=== PATIENT | male | born 1995 | race African-American/Black ===

== ENCOUNTER 2019-07-15 12:25 | Emergency (ER) | payer OTHER, SELFPAY ==
[2019-07-15 12:30] VITALS: BP 132/78; PULSE 81; RESP 18; TEMP 36.4; O2SAT 98
--- NOTE | 2019-07-15 12:59 | ED.GENADULT ---
HPI - General Adult General Chief complaint: Upper Respiratory Infection Stated complaint: sore throat/swollen tonsils History of Present Illness HPI narrative: Patient is a 23-year-old -[place] male who presents to the urgent care via POV for evaluation of a sore throat that began 2 days ago. Additionally he reports myalgias and tonsillar swelling. Throat pain is intermittent and tight in nature. No relief with Robitussin. Swallowing worsens pain. History of strep. States today's symptoms are similar to previous episodes of strep prompting today's visit. Pertinent negatives: fever, chills, poor p.o. intake, flu-like symptoms, ear pain/drainage, sinus trouble, headache, nasal congestion, rhinorrhea, lymphadenopathy, dizziness, LOC, inability to swallow, drooling, hoarseness, halitosis, abdominal pain, nausea, vomiting, diarrhea, cough, wheezing, sob, chest pain, heart murmurs, and heart palpations. Related Data Home Medications Medication Instructions Recorded Confirmed qhvolrumb-OQ-oalvreikvequi ml PO 07/15/19 [Robitussin Cold-Flu Night (PE)] Allergies Allergy/AdvReac Type Severity Reaction Status Date / Time No Known Allergies Allergy Verified 07/15/19 12:36 Review of Systems Review of Systems: Narrative: All other systems reviewed and are negative PMFSH Comments I have reviewed and agree with the patient's past medical, surgical, social, and family hx as documented by the RN. There is no relevant family history pertinent to the presenting complaint. Exam Narrative: Exam Narrative: GENERAL: Well-appearing, well-nourished, and in no acute distress. HEAD: Normocephalic, atraumatic. No sinus tenderness or facial swelling appreciated. EYES: PERRLA and EOMI. No evidence of erythema, swelling, or drainage. ENT: Bilateral external ears and ear canals normal. Bilateral TMs are normal.No TM perforation. Nares clear, no rhinorrhea or epistaxis. Bilateral turbinates without erythema/ swelling. Mucous membranes moist and pink. Uvula is midline without erythema and swelling. Aphthous ulcer appreciated to uvula. Bilateral tonsils with mild erythema. No evidence of petechial rash, cobblestoning, lesions, swelling, exudates, peritonsillar abscess, tenting, or drooling. Breath odor and voice normal. NECK: Supple. No Lymphadenopathy or nuchal rigidity appreciated. CHEST: Bilateral lung daley are clear to auscultation. No respiratory distress. No evidence of cough or pleuritic cp upon examination. HEART: Regular rate and rhythm. No murmur, gallop, or rub heard. EXTREMITIES: Normal range of motion. No edema. SKIN: Warm, dry, no rash. NEURO: No focal deficits. Alert and oriented x3. Course Vital Signs Vital signs: Vital Signs Temperature 97.5 F L 07/15/19 12:30 Pulse Rate 81 07/15/19 12:30 Respiratory Rate 18 07/15/19 12:30 Blood Pressure 132/78 07/15/19 12:30 Pulse Oximetry 98 07/15/19 12:30 Temperature 97.5 F L 07/15/19 12:30 Pulse Rate 81 07/15/19 12:30 Respiratory Rate 18 07/15/19 12:30 Blood Pressure 132/78 07/15/19 12:30 Pulse Oximetry 98 07/15/19 12:30 Medical Decision Making Differential Diagnosis Differential Diagnosis: Allergic rhinitis, ABRS, acute viral sinusitis, strep pharyngitis, nasopharyngitis, bronchitis, pneumonia, AOM, otitis externa, viral URI, influenza Medical Records Medical records reviewed: Yes I reviewed the patient's medical records. Vital Signs Vital Signs: Vital Signs Temperature 97.5 F L 07/15/19 12:30 Pulse Rate 81 07/15/19 12:30 Respiratory Rate 18 07/15/19 12:30 Blood Pressure 132/78 07/15/19 12:30 Pulse Oximetry 98 07/15/19 12:30 Temperature 97.5 F L 07/15/19 12:30 Pulse Rate 81 07/15/19 12:30 Respiratory Rate 18 07/15/19 12:30 Blood Pressure 132/78 07/15/19 12:30 Pulse Oximetry 98 07/15/19 12:30 Lab Data Lab results reviewed: Yes I reviewed the patient's lab results. Labs: Strep
== END 2019-07-15 13:22 | disposition home or self-care (01) ==
PROVIDERS: Emergency Provider Nurse Practitioner Family
DX: J02.9 Acute pharyngitis, unspecified (principal)
CPT/HCPCS: 87081; 87880; 99213; G0463

== ENCOUNTER 2019-07-22 15:56 | Emergency (ER) | payer OTHER, SELFPAY ==
[2019-07-22 15:58] VITALS: BP 127/77; PULSE 75; RESP 16; TEMP 36.6; O2SAT 100
--- NOTE | 2019-07-22 16:01 | ED.URI ---
HPI - URI/Sore Throat General Chief Complaint: Upper Respiratory Infection Stated Complaint: sore throat Time Seen by Provider: 07/22/19 16:04 Source: patient and RN notes reviewed Mode of arrival: ambulatory Limitations: no limitations History of Present Illness HPI Narrative: 23-year-old male presents with concern for sore throat, swollen tonsils for 10 days. He reports he had a negative strep test done here 1 week ago. Reports symptoms have not improved despite use of Sammi-D, Flonase. Denies current fever. Denies headache, nausea. Reports body aches. MD elicited complaint: sore throat Related Data Home Medications Medication Instructions Recorded Confirmed Flonase Allergy Relief 07/22/19 fexofenadine-pseudoephedrine 1 tablet PO QAM 07/22/19 07/22/19 [Sammi-D 24 Hour] Allergies Allergy/AdvReac Type Severity Reaction Status Date / Time No Known Allergies Allergy Verified 07/17/19 15:12 Review of Systems Review of Systems: Narrative: CONSTITUTIONAL: Reports malaise. Denies chills, sweats, or fever. EYES: Denies visual changes, redness, or discharge. ENT: Denies rhinorrhea, congestion, sinus pain, otalgia. Reports swollen tonsils and sore throat. CARDIOVASCULAR: Denies chest pain, palpitations, or edema. RESPIRATORY: Reports nighttime cough. Denies dyspnea. GASTROINTESTINAL: Denies abdominal pain, nausea, vomiting, diarrhea SKIN: Denies rash or itching. MUSCULOSKELETAL: Denies myalgia. NEUROLOGIC: Denies headache. All systems reviewed & are unremarkable except as noted in HPI and below PMFSH Social History Social History (System 07/17/19 @ 15:12 by Georgie Hargrove) Smoking status: Never smoker Alcohol intake: never Comments At time of signature, agree with nursing past medical, surgical, social and family history. There is no relevant family history pertinent to the presenting complaint Exam Narrative: Exam Narrative: GENERAL: Well-appearing, well-nourished, and in no acute distress. HEAD: Normocephalic EYES: PERRLA, conjunctivae clear ENT: Nares clear, turbinates erythematous, clear discharge. Mucous membranes moist. TM pearly diaz with sharp light reflex bilaterally; no tragal tenderness. Oropharynx erythematous without lesions. Tonsils enlarged with exudate, no drooling, no hoarseness, no trismus, uvula midline. NECK: Supple. No lymphadenopathy CHEST: Clear to auscultation, breath sounds equal. No wheezing, rhonchi, rales, or stridor. No respiratory distress, speaks in full sentences. HEART: Regular rate and rhythm. No murmur heard. SKIN: Warm, dry, no rash. NEURO: Alert and oriented x3. PSYCH: Normal mood and affect Course Course Emergency Course: Patient is aware of diagnosis, understands and agrees to treatment plan. Anticipatory guidance given. Patient agrees to follow-up as directed and is aware of reasons to seek care at the emergency department. Portions of this record may have been created with voice recognition software Vital Signs Vital signs: Vital Signs Temperature 97.8 F 07/22/19 15:58 Pulse Rate 75 07/22/19 15:58 Respiratory Rate 16 07/22/19 15:58 Blood Pressure 127/77 07/22/19 15:58 Pulse Oximetry 100 07/22/19 15:58 Temperature 97.8 F 07/22/19 15:58 Pulse Rate 75 07/22/19 15:58 Respiratory Rate 16 07/22/19 15:58 Blood Pressure 127/77 07/22/19 15:58 Pulse Oximetry 100 07/22/19 15:58 Reviewed. MDM - URI/Sore Throat MDM Narrative Medical decision making narrative: Differential diagnosis considered: Strep pharyngitis, allergic rhinitis, upper respiratory tract infection, sinusitis, rhinosinusitis, nasopharyngitis. viral pharyngitis, otitis media, otitis externa, pneumonia, bronchitis, viral cough syndrome, viral syndrome, and influenza. Exam findings show no acute concerns or changes; patient is non-toxic appearing and is in no distress. Patient is appropriate for outpatient treatment and follow-up. Critical Care Time Critical
== END 2019-07-22 16:18 | disposition home or self-care (01) ==
PROVIDERS: Emergency Provider Nurse Practitioner
DX: J03.90 Acute tonsillitis, unspecified (principal)
CPT/HCPCS: 99213; G0463

== ENCOUNTER 2023-06-19 11:44 | Outpatient (CLI) | payer BC, SELFPAY | END 2023-06-19 11:45 | disposition home or self-care (01) | LOC: ANHSURGERY 11:47 | PROVIDERS: PCP Family Medicine; Visit Provider Surgery | DX: Z01.818 Encounter for other preprocedural examination (principal); K40.90 Unilateral inguinal hernia, without obstruction or gangrene, not specified as recurrent | CPT/HCPCS: 36415; 86850; 86900; 86901 ==

== ENCOUNTER 2023-06-23 01:43 | Day surgery (SDC) | payer BC, SELFPAY ==
[2023-06-14 14:30] VITALS: BMI 27.0
--- NOTE | 2023-06-14 14:33 | PC.NURSE ---
Report to the Outpatient Waiting Room, entrance under the green pavilion located off [facility], at time 7:30 on date 06/23/23. Planned Procedure Time: 9:30. Time changes happen often and if your time is changed the preop area will call you the afternoon before. - You and your visitor will be asked to self-screen and do not enter if you have any COVID symptoms. - A mask is optional within the hospital at this time. Patients may have clear liquids (water, carbonated beverages, clear teas, apple juice) until 3 hours prior to surgery with a maximum of 20 ounces. - No food from midnight until time of surgery Take the following medications with a SIP of water the morning of surgery: N/A DO NOT STOP ANY OF YOUR OTHER PRESCRIPTION MEDICATIONS PRIOR TO SURGERY ?EXCEPT THE FOLLOWING Medications to discontinue per physician: N/A Date to take last dose: N/A Please no make-up, nail persian, hairspray, perfume, deodorant, or body powder the day of surgery. No jewelry (including any body piercings) or valuables the day of surgery, leave them at home. Please take a shower or bath the night before, or the morning of, surgery with an antibacterial soap. Wear comfortable, loose fitting clothing. - Jewelry must be removed prior to entering the operating room. Rings and piercings that are not removed may be cut off. - The hospital will not accept responsibility for valuables. - Please leave all valuables, including medications, at home the day of surgery. If you are going home after surgery, a licensed truck driver's offsider must drive you home. - NO public transportation without another adult if you receive anesthesia. - We recommend that an adult stay with you for 24 hours following discharge. - We also recommend that you do not drive, make important decision, drink alcoholic beverages, or take any drugs that were not prescribed by your health care provider for at least 24 hours after your discharge time. Follow any additional instructions given to you from your surgeon. If you or anyone in your household have experienced Covid symptoms in the past week, please notify your surgeon or the nurse liaison at the phone number below for possible testing. Telephone instructions given to PT Zac RODRIGUEZ and asked if any additional questions and then verbalized understanding. Patient advised to call surgeon office or pre surgery nurse liaison [phone] if any additional questions.
--- NOTE | 2023-06-21 15:49 | PM.SD2 ---
Same Day Admit/Disch: HPI History of Present Illness Chief complaint: right inguinal hernia Narrative: Nely Hernández Jr. is a 27 year old male who has had a right inguinal bulge for at least a year. He has noticed that this is becoming more and more uncomfortable. He has pain with prolonged standing and physical exertion. He was seen in the office and found to have a large right inguinal hernia which extends to the upper portion of the right hemiscrotum. He is taken to surgery now for robotic laparoscopic right inguinal hernia repair with mesh. 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 Gender identity (if verbalized by the patient): Male Spiritual care concerns: No Agree to blood products: Yes Same Day Admit/Disch: Med Pre-admit Medications Home Medications Medication Instructions Recorded Confirmed Type ketorolac 10 mg tablet 10 mg PO Q6H 4 days #16 tabs 06/23/23 Rx oxycodone-acetaminophen 5 mg-325 0.5 - 1 tablet PO Q6H PRN pain #10 06/23/23 Rx mg tablet tabs Review of Systems Review of Systems All systems reviewed & are unremarkable except as noted in HPI and below (HPI) Exam Const: General: comfortable, no acute distress, alert and awake HENMT: Head: normocephalic and atraumatic Mouth: Yes Normal oral and palatal mucosa present Eyes: Conjunctivae: conjunctivae normal Pupils: Equal, round and reactive pupils present EOM: EOMs intact bilaterally Neck: Neck: normal visual inspection, no lymphadenopathy and nontender Resp: Effort & Inspection: normal respiratory effort Auscultation: clear to auscultation bilaterally Cardio: Rate: regular rate Rhythm: regular rhythm Heart sounds: no gallops, no murmurs and no rubs GI: Inspection: non-distended GI Palp: Yes Soft to palpation, No Tenderness to palpation present (GI), No Hepatomegaly present and No Splenomegaly present : Male General Exam: Yes hernia (Large right inguinal hernia, reducible; extends into the upper scrotum) Penis: Yes normal penis Scrotum: inguinal hernia Testes: Testes normal Skin: Lesions: no lesions Rashes: no rashes Neuro: General: no focal motor deficits and CN's II-XI intact bilaterally Cranial nerves: Yes Equal, round and reactive pupils present, Yes Bilaterally intact EOM present, Yes facial symmetry and Yes Midline tongue present Speech: normal speech Motor exam (neuro): 5/5 motor strength present throughout and Motor abnormalities not present Extrem: General: no clubbing, cyanosis or edema and edema Psych: Affect: normal affect Thought process: Normal thought process present Insight: Good insight present (Psych) DS: Summary Time Spent with Patient Time attestation: Total time spent providing and/or coordinating discharge services: DS: Admitting Diagnosis Discharge Date 06/23/2023 Admitting Diagnosis Symptomatic reducible right inguinal hernia-plan to proceed with robotic laparoscopic hernia repair with mesh. The procedure, alternatives, risks and benefits have been discussed. The usual recovery time has been discussed as has the usual time off work. All questions were answered. He understands and wishes to go ahead. DS: Discharge Diagnosis Discharge Diagnosis (1) Reducib
[2023-06-23] VITALS (9 sets, daily range): BP systolic 107–135; BP diastolic 56–74; PULSE 58–79; RESP 12–18; TEMP 36.3–36.4; O2SAT 98–100
[2023-06-23] MEDS: LACTATED RINGERS 1,000 ML 30 ML IV CONT ×2 (08:37→11:30)
[2023-06-23] MEDS: ACETAMINOPHEN 500 MG TABLET 1000 MG PO (09:02)
--- NOTE | 2023-06-23 09:02 | WPDHPUPDATE1 ---
History and Physical Update Update Date/Time: 06/23/23 09:02 History and Physical has been reviewed, including an updated exam of the patient. There are NO changes in the patient's condition. Risks, benefits, and alternatives have been discussed and questions answered. Patient agrees to proceed with procedure.
--- NOTE | 2023-06-23 09:03 | P.PNAN_ITS ---
Anes - Initial Pre Proc Eval Procedure: Operation Date: 06/23/23 09:30 Proposed Procedures p Robotic Laparoscopic Right Inguinal Hernia Repair - Braden Cutler MD Date/Time: 06/23/23 09:03 Surgeon: Braden Cutler MD Pre Op Diagnosis: right inguinal hernia Patient Data Age: 27 Gender: M Height: 1.91 m Weight: 99.6 kg Allergies Allergy/AdvReac Type Severity Reaction Status Date / Time No Known Allergies Allergy Verified 06/23/23 07:45 Home Medications Medication Instructions Recorded Confirmed Type No Home Medications 05/08/23 06/23/23 History Patient hx anesthesia problems: none Family hx anesthesia problems: none Results Review: All pre-operative results and documents have been reviewed as part of the pre- operative evaluation. [facility] Family History Family History Grandparent Diabetes mellitus Father Diabetes mellitus Social History Social History Smoking status: Never smoker Alcohol intake: never Substance use: never Substance use type: does not use Do You Feel Safe in your Home?: Yes Lack of Transportation: No Lack of Food: Never True Current Housing: I Have Housing Concerned About Future Housing: No Difficulty Paying Gas/Electric Bills: No Difficulty Paying for Meds: No Currently Unemployed: No Education: High School Diploma/GED Living arrangements: with family Occupation/Education: occupation 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 Gender identity (if verbalized by the patient): Male Spiritual care concerns: No Agree to blood products: Yes Anes - Eval Final PreProcedure Day of Procedure 06/23/23 09:03 Patient weight: overweight Heart: regular rate and rhythm Lungs: clear to auscultation Airway: Mallampati scale class II Neurological: alert and oriented Last oral intake: >/= 8 hours ASA classification: II Emergent: no Anesthetic plan: proceed Anesthesia type and monitoring: general ETT and standard monitoring Results Review: All pre-operative results and documents have been reviewed as part of the pre- operative evaluation. Informed Consent: The patient's anesthetic plan and its attendant risks and benefits were discussed with the patient/family/POA. Questions were solicited and answers provided to the satisfaction of the patient/family/POA.
[2023-06-23] MEDS: KETOROLAC 15 MG/ML VIAL (*BKC) IV PUSH (09:04)
[2023-06-23] MEDS: ceFAZolin 2 GM/D5W 50 ML 2 GM/50 ML BAG IVPB (09:23)
[2023-06-23] MEDS: BUPIVACAINE/EPINEPHRINE 0.5% 30 ML VIAL INFILTRATE (10:09)
--- NOTE | 2023-06-23 11:26 | W.PM.PROC2 ---
Procedure Note - Detailed Date of Procedure 06/23/23 Pre-op Diagnosis right inguinal hernia Post-op Diagnosis Same Procedure Performed Robotic laparoscopic repair right inguinal hernia with mesh Surgeon Braden Cutler MD News Assignment Editor Luis FARAH Anesthesia General and Local Indications Patient has a large right inguinal hernia that goes down into the upper scrotum. It has been uncomfortable and sometimes painful. It is reducible. He is taken to surgery now for robotic laparoscopic repair Findings This was a large hernia with a very large hernia sac and quite a bit of lipomatous tissue of the cord. Description of Procedure Patient was taken to the operating room and induced into general anesthesia. The abdomen and genitalia were prepped and draped. Trocars were placed using applied Medical 5 mm optical trocar to gain the initial intra-abdominal access. 8 mm robotic trocars were then placed under direct visualization. The 5 mm trocar was then switched out for an 8 mm robotic trocar. The trocars were in a transverse line in the mid upper abdomen. Patient was placed in Trendelenburg. The robot was brought into the field and the camera was docked and targeted. The instrument arms were then docked and each instrument was guided under direct visualization to the area of the right inguinal hernia. The surgeon then broke scrub and went to the robotic console. A peritoneal flap was created starting laterally and proceeding anteriorly and medially over the structures of the inguinal canal. The dissection was carried medially to the median umbilical ligament. The peritoneal flap was then dissected broadly from the underlying contents the pelvic anterior wall. Medially we dissected along the right rectus muscle down to the pubis. We dissected across the midline to the medial aspect of the left rectus muscle and exposed the midpoint of the pubis. We then dissected about 2 cm posterior to the pubis and Miky's ligament. I moved than laterally and dissected ample amounts of the peritoneal flap posteriorly. At this point I began dissection of the indirect hernia. With traction on the anterior hernia sac I began dividing transversalis fibers and pushing them distally. Continued this dissection and a large lipoma of the cord was found and reduced. Continued the dissection and then proceeded lateral to hernia sac and carefully dissected the cord structures away from this portion of the hernia sac. Once these were found, they were carefully protected. I continued dividing transversalis and reducing the hernia sac until I came to the into the sac. I then carefully dissected this and the remainder of the hernia sac from the cord vessels. Hernia sac and the peritoneal flap were then dissected far enough away from the indirect ring for adequate mesh placement. There was very little bleeding during this procedure and visualization was excellent. I then introduced the mesh and positioned it appropriately with the medial aspect of the mesh over the pubis and Miky's ligament. I then used a 3-0 Vicryl in secure the medial aspect of the lower mesh to Miky's ligament. I then placed interrupted sutures anteriorly both on medial as well as the lateral aspect of the inferior epigastric vessels. Mesh appeared to be quite secure in this position. I checked again for any sign of bleeding and there was none. I then used a 3 0 V lock suture and starting laterally, closed the peritoneal flap running suture. When the flap was adequately closed, there was no peritoneal defects that required closure. We then evacuated CO2 and the robotic instruments, undocked the robot and removed the trocars. The skin wounds were closed with subcuticular 4-0 Monocryl skin suture. A scrotal support was placed. The patient was awakened and taken to recovery in good condition. Sponge needle counts were correct x2. Implants 17 x 12 cm mid right 3DMax mesh Estimated Blood Loss -5 Drains
[2023-06-23] MEDS: fentaNYL CITRATE INJ (*CRX) 100 MCG/2 ML VIAL 25 MCG IV PUSH (12:09)
== END 2023-06-23 13:54 | disposition home or self-care (01) ==
PROVIDERS: PCP Family Medicine; Visit Provider Surgery
PROC: 8E0Y4CZ Robotic Assisted Procedure of Lower Extremity, Percutaneous Endoscopic Approach (ICD-10-PCS; CPT 49650; principal; 2023-06-23 09:30)
DX: K40.90 Unilateral inguinal hernia, without obstruction or gangrene, not specified as recurrent (principal); D17.6 Benign lipomatous neoplasm of spermatic cord
CPT/HCPCS: 49650; S2900; A9270; C1781; J0690; J1100; J1170; J1885; J2250; J2405; J2704; J3010; J7030; J7120

== ENCOUNTER 2023-11-23 14:33 | Outpatient (CLI) | payer BC, SELFPAY ==
--- NOTE | ~2023-11-23 | CT_ITS ---
EXAMINATION: CT abdomen pelvis wo con DATE: 11/23/2023 14:48 INDICATION: Lower abdominal and groin pain TECHNIQUE: Computed tomography (CT) of the abdomen and pelvis was performed without intravenous contr ast. Automated exposure control and iterative reconstruction technique were employed. The dose-length product was 854.78 mGy-cm. COMPARISON: None FINDINGS: Lung bases are clear. Heart size is normal. No pericardial or pleural effusion. Liver, gallbladder, s pleen, pancreas, bilateral adrenal glands and kidneys are normal. No bowel obstruction. Normal append ix. Bladder is normal. No free intraperitoneal gas or fluid. No pathologically enlarged abdominal or pelvic lymphadenopathy. Mild thoracolumbar levocurvature with mild spondylosis. For millimeter retrol isthesis L5 on S1. IMPRESSION: 1. No acute intra-abdominal/pelvic process. Reviewed, dictated and finalized at location A.
== END 2023-11-23 14:34 ==
LOC: GOSHIMG 14:33
PROVIDERS: PCP Family Medicine; Visit Provider Student in an Organized Health Care Education/Training Program
DX: R10.30 Lower abdominal pain, unspecified (principal)
CPT/HCPCS: 74176

== ENCOUNTER 2023-12-21 15:01 | Outpatient (CLI) | payer BC, SELFPAY ==
--- NOTE | ~2023-12-21 | XR_ITS ---
EXAMINATION: XR pelvis min 3V DATE: 12/21/2023 15:22 INDICATION: Traumatic rupture of symphysis pubis. Pelvic pain. TECHNIQUE: 3 views of the pelvis were obtained. COMPARISON: CT abdomen and pelvis 11/23/2023 FINDINGS: Alignment is normal. No fracture. There is mild osteoarthritis of the hips. IMPRESSION: 1. Mild osteoarthritis of the hips. Reviewed, dictated and finalized at location A.
== END 2023-12-21 15:02 ==
PROVIDERS: PCP Family Medicine; Visit Provider Family Medicine
DX: S33.4XXA Traumatic rupture of symphysis pubis, initial encounter (principal); M16.0 Bilateral primary osteoarthritis of hip
CPT/HCPCS: 72190

== ENCOUNTER 2024-04-17 01:20 | Day surgery (SDC) | payer BC, SELFPAY ==
[2024-04-17] VITALS (13 sets, daily range): BP systolic 110–133; BP diastolic 52–79; PULSE 59–90; RESP 14–20; TEMP 36.1–36.6; O2SAT 95–100
--- NOTE | ~2024-04-17 | CT_ITS ---
CT of the Abdomen and Pelvis: Indication: Abdominal pain Technique: 2.5 mm axial scans were obtained through the abdomen and pelvis following intravenous adm inistration of 100 cc of Omnipaque 350. Dose reduction technique was used on this scan by utilizing a utomated exposure control and iterative reconstruction technique. The dose-length product (DLP) was 5 21.57 mGy-cm. COMPARISON: 11/23/2023 Findings: Scans through the lung bases are unremarkable. The liver, spleen, pancreas, gallbladder, adrenals and kidneys are within normal limits. No evidence of aortic aneurysm. No lymphadenopathy. No bowel obstruction or bowel wall thickening. Appendix measures up to 1 cm in diameter with possible minimal periappendiceal fat or stranding. Images through the pelvis were performed. Urinary bladder unremarkable. No pelvic mass. Impression: Suspected early acute appendicitis. Correlate clinically. Reviewed, dictated and finalized at [facility]. 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 Correlate clinically.
[2024-04-17 01:46] LABS: Basophils Percent Auto 0.4 % (0.2-1.2); Eosinophils Absolute Auto 0.1 K/mm3 (0-0.3); Eosinophils Percent Auto 0.6 % (0-4.4); Hematocrit 38.1 % (42.0-52.0); Hemoglobin 13.5 g/dL (14.0-18.0); Immature Granulocyte Absolute 0.02 K/mm3 (0.00-0.031); Immature Granulocyte Percent A 0.2 % (0-0.5); Lymphocytes Absolute Auto 2.32 K/mm3 (0.9-3.2); Mean Corpuscular HGB Conc 35.4 g/dl (32-36); Mean Corpuscular Volume 87.6 fl (80-100); Mean Platelet Volume 10.2 fl (7.4-10.4); Monocytes Absolute Auto 0.8 K/mm3 (0.1-0.6); Monocytes Percent Auto 7.9 % (2.6-8.5); Neutrophils Absolute Auto 7.3 K/mm3 (1.3-6.7); Neutrophils Percent Auto 68.9 % (45.5-73.1); Platelet Count Result 210 k/mm3 (150-375); Red Blood Count 4.35 M/mm3 (4.6-6.20); Red Cell Distribution Width 11.2 % (11.5-14.5); White Blood Count 10.6 K/mm3 (4.5-10.0)
[2024-04-17 01:47] LABS: Add Urine Microscopic? NO; Appearance Urine Clear (Clear); Bilirubin Urine Negative (Negative); Blood Urine Negative (Negative); Color Urine Yellow (Yellow); Glucose Urine UA Negative (Negative); Ketones Urine Negative (Negative); Leukocyte Esterase Ur Negative LEU/UL (Negative); Nitrate Urine Negative (Negative); Protein Urine Negative (Negative); Specific Grav Ur 1.014 (1.001-1.035); Urobilinogen Urine 0.2 mg/dL (<2.0); pH Urine 6.5 (5.0-9.0)
--- NOTE | 2024-04-17 01:47 | ED.ABDPAIN ---
HPI - Abdominal Pain General Chief Complaint: Abdominal Pain <DONNA Xiao Last Filed: 04/17/24 03:54> Stated Complaint: abd pain <DONNA Xiao Last Filed: 04/17/24 03:54> Time Seen by Provider: 04/17/24 01:30 <William Deluna PA-C - Last Filed: 04/17/24 03:54> Source: patient <DONNA Xiao Last Filed: 04/17/24 03:54> Mode of arrival: ambulatory <DONNA Xiao Last Filed: 04/17/24 03:54> Limitations: no limitations <DONNA Xiao Last Filed: 04/17/24 03:54> History of Present Illness HPI narrative: This is a 28-year-old male who presents to the ED for chief complaint of lower abdominal pain ongoing for the past several days and worse tonight. Reports a pressure-like pain in the low abdomen/mid abdomen. Reports that feels like it is radiating superiorly. States this all started a few months ago when his daughter need him in the groin. Since then he has been having pain with erections. States he has had hernia in the past but this feels different. Denies urinary symptoms, troubles with bowel movements. Denies fevers, chills, testicular swelling, nausea, vomiting, diarrhea. <William Deluna PA-C - Last Filed: 04/17/24 03:54> Related Data Allergies/Adverse Reactions: Allergies Allergy/AdvReac Type Severity Reaction Status Date / Time No Known Allergies Allergy Verified 04/17/24 01:49 <William Deluna PA-C - Last Filed: 04/17/24 03:54> Review of Systems Review of Systems: All systems as dictated in HPI <DONNA Xiao Last Filed: 04/17/24 03:54> [facility] Surgical History Surgical History: Surgical History Hx of inguinal hernia repair Robotic laparoscopic repair right inguinal hernia with mesh 06/23/23 [facility] <DONNA Xiao Last Filed: 04/17/24 03:54> Family History Family History: Family History Grandparent Diabetes mellitus Father Diabetes mellitus <William Deluna PA-C - Last Filed: 04/17/24 03:54> Social History Social History: Social History Smoking status: Never smoker Alcohol intake: never Substance use: never Substance use type: does not use Do You Feel Safe in your Home?: Yes Lack of Transportation: No Lack of Food: Never True Current Housing: I Have Housing Concerned About Future Housing: No Difficulty Paying Gas/Electric Bills: No Difficulty Paying for Meds: No Currently Unemployed: No Education: High School Diploma/GED Living arrangements: with family Occupation/Education: occupation 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 HEAD: Normocephalic, atraumatic. EYES: PERRLA and EOMI. ENT: Nares clear, no rhinorrhea or epistaxis. Mucous membranes moist. Oropharynx without tonsillar hypertrophy exudate or other lesions. NECK: Supple. No adenopathy or masses. CHEST: No respiratory distress. Clear to auscultation. No wheezes rales or rhonchi HEART: Regular rate and rhythm. No murmur heard. Normal peripheral pulses. ABDOMEN: Mild suprapubic tenderness. Soft, otherwise nontender, nondistended, normal active bowel sounds. No bulge or hernia MSK: Normal range of motion. No edema. SKIN: Warm, dry, no rash. NEURO: Alert and oriented x4. No focal deficits. PSYCH: Normal mood and affect. <William Deluna PA-C - Last Filed: 04/17/24 03:54> Course ENVIRONMENTAL SERVICE AIDE/PA Physician Supervision For this patient encounter, I reviewed the ENVIRONMENTAL SERVICE AIDE or PA documentation, treatment plan, and medical decision making; and I had [id number] time with this patient. <Fritz Prince MD - Last Filed: 04/17/24 05:53> Vital Signs Vital signs: Vital Signs Temperature 36.6 C 04/17/24 01:28 Pulse Rate 90 04/17/24 01:28 Respiratory Rate 15 04/17/24 01:28 Blood Pressure 131/69 04/17/24 01:28 Pulse Oximetry 98 04/17/24 01:28 Oxygen Delivery Room Air 04/17/24 01:28 Temperature 36.6 C 04/17/24 01:28 Pulse Rate 69 04/17/24 05:15 Respiratory Rate 15 04/17/24 05:15 Blood Pressure 128/70 04/17/24 05:15 Pulse Oximetry 100 04/17/24 05:15 Oxygen Delivery Room Air 04/17/24 01:28 <William Deluna PA-C - Last Filed: 04/17/24 03:54> Vital Signs Temperature 36.6 C 04/17/24 01:28 Pulse Rate 90 04/17/24 01:28 Respiratory Rate 15 04/17/24 01:28 Blood Pressure 131/69 04/17/24 01:28 Pulse Oximetry 98 04/17/24 01:28 Oxygen Delivery Room Air 04/17/24 01:28 Temperature 36.6 C 04/17/24 01:28 Pulse Rate 69 04/17/24 05:15 Respiratory Rate 15 04/17/24 05:15 Blood Pressure 128/70 04/17/24 05:15 Pulse Oximetry 100 04/17/24 05:15 Oxygen Delivery Room Air 04/17/24 01:28 <Fritz Prince MD - Last Filed: 04/17/24 05:53> MDM - Abdominal Pain MDM Narrative Medical decision making narrative: 28-year-old male coming in for abdominal pain. Vitals are normal. Exam does show lower abdominal tenderness. Lab work is coming back unremarkable. Patient will be handed off at the time of shift change pending CT abdomen results. <William Deluna PA-C - Last Filed: 04/17/24 03:54> 28-year-old male coming in for abdominal pain. Vitals are normal. Exam does show lower abdominal tenderness. Lab work is coming back unremarkable. Patient will be handed off at the time of shift change pending CT abdomen results. CT scan of the abdomen pelvis showed acute appendicitis with dilated inflamed appendix measuring up to 1 cm Case was discussed with surgery and the patient was given Zosyn and the patient will be admitted to the surgical service <Fritz Prince MD - Last Filed: 04/17/24 05:53> Differential Diagnosis Differential diagnosis: Likely abdominal pain, acute appendicitis, calculus of kidney, constipation, diverticulitis, gastroenteritis and small bowel obstruction <William Deluna PA-C - Last Filed: 04/17/24 03:54> Lab Data Result diagrams: 04/17/24 01:36 04/17/24 01:36 <William Deluna PA-C - Last Filed: 04/17/24 03:54> Labs: Lab Results 04/17/24 Range/Units 01:36 WBC 10.6 H (4.5-10.0) K/mm3 RBC 4.35 L (4.6-6.20) M/mm3 Hgb 13.5 L (14.0-18.0) g/dL Hct 38.1 L (42.0-52.0) % MCV 87.6 (80-100) fl MCH 31.0 (26-34) pg MCHC 35.4 (32-36) g/dl RDW 11.2 L (11.5-14.5) % Plt Count 210 (150-375) k/mm3 MPV 10.2 (7.4-10.4) fl Immature Gran % (Auto) 0.2 (0-0.5) % Neut % (Auto) 68.9 (45.5-73.1) % Lymph % (Auto) 22.0 (18.3-44.2) % [place] % (Auto) 7.9 (2.6-8.5) % Eos % (Auto) 0.6 (0-4.4) % Baso % (Auto) 0.4 (0.2-1.2) % Lymph # (Auto) 2.32 (0.9-3.2) K/mm3 [place] # (Auto) 0.8 H (0.1-0.6) K/mm3 Eos # (Auto) 0.1 (0-0.3) K/mm3 Baso # (Auto) 0.0 (0.0-0.1) K/mm3 Abs Immat Gran (auto) 0.02 (0.00-0.031) K/mm3 Absolute Neuts (auto) 7.3 H (1.3-6.7) K/mm3 Absolute Nucleated RBC 0.000 (0.0-0.012) K/mm3 Nucleated RBC % 0.0 (0.0-0.2) % Sodium 136 L (137-145) mmol/L Potassium 3.2 L (3.4-5.0) mmol/L Chloride 103 (98-107) mmol/L Carbon Dioxide 27 (22-30) mmol/L Anion Gap 6 (4-12) mmol/L BUN 11 (9-20) mg/dL Creatinine 1.10 (0.7-1.3) mg/dL Estim Creat Clear Calc 104 ml/min Estimated GFR > 60 (59 - ) Glucose 97 (65-110) mg/dL Calcium 9.0 (8.4-10.2) mg/dL Total Bilirubin 0.5 (0.2-1.3) mg/dL AST 27 (17-59) U/L ALT 20 (6-50) U/L Alkaline Phosphatase 81 (38-126) U/L Total Protein 7.0 (6.3-8.2) g/dL Albumin 4.6 (3.5-5.1) g/dL Lipase 93 (23-300) U/L Urine Color Yellow (Yellow) Urine Appearance Clear (Clear) Urine pH 6.5 (5.0-9.0) Ur Specific [place] 1.014 (1.001-1.035) Urine Protein Negative (Negative) mg/dL Urine Glucose (UA) Negative (Negative) mg/dL Urine Ketones Negative (Negative) mg/dL Ur Blood (Man) Negative (Negative) Urine Nitrate Negative (Negative) Urine Bilirubin Negative (Negative) Urine Urobilinogen 0.2 (<2.0) mg/dL Leukocyte Esterase Rfl Negative (Negative) JAMIL/UL <William Deluna PA-C - Last Filed: 04/17/24 03:54> Lab Results 04/17/24 Range/Units 01:36 WBC 10.6 H (4.5-10.0) K/mm3 RBC 4.35 L (4.6-6.20) M/mm3 Hgb 13.5 L (14.0-18.0) g/dL Hct 38.1 L (42.0-52.0) % MCV 87.6 (80-100) fl MCH 31.0 (26-34) pg MCHC 35.4 (32-36) g/dl RDW 11.2 L (11.5-14.5) % Plt Count 210 (150-375) k/mm3 MPV 10.2 (7.4-10.4) fl Immature Gran % (Auto) 0.2 (0-0.5) % Neut % (Auto) 68.9 (45.5-73.1) % Lymph % (Auto) 22.0 (18.3-44.2) % [place] % (Auto) 7.9 (2.6-8.5) % Eos % (Auto) 0.6 (0-4.4) % Baso % (Auto) 0.4 (0.2-1.2) % Lymph # (Auto) 2.32 (0.9-3.2) K/mm3 [place] # (Auto) 0.8 H (0.1-0.6) K/mm3 Eos # (Auto) 0.1 (0-0.3) K/mm3 Baso # (Auto) 0.0 (0.0-0.1) K/mm3 Abs Immat Gran (auto) 0.02 (0.00-0.031) K/mm3 Absolute Neuts (auto) 7.3 H (1.3-6.7) K/mm3 Absolute Nucleated RBC 0.000 (0.0-0.012) K/mm3 Nucleated RBC % 0.0 (0.0-0.2) % Sodium 136 L (137-145) mmol/L Potassium 3.2 L (3.4-5.0) mmol/L Chloride 103 (98-107) mmol/L Carbon Dioxide 27 (22-30) mmol/L Anion Gap 6 (4-12) mmol/L BUN 11 (9-20) mg/dL Creatinine 1.10 (0.7-1.3) mg/dL Estim Creat Clear Calc 104 ml/min Estimated GFR > 60 (59 - ) Glucose 97 (65-110) mg/dL Calcium 9.0 (8.4-10.2) mg/dL Total Bilirubin 0.5 (0.2-1.3) mg/dL AST 27 (17-59) U/L ALT 20 (6-50) U/L Alkaline Phosphatase 81 (38-126) U/L Total Protein 7.0 (6.3-8.2) g/dL Albumin 4.6 (3.5-5.1) g/dL Lipase 93 (23-300) U/L Urine Color Yellow (Yellow) Urine Appearance Clear (Clear) Urine pH 6.5 (5.0-9.0) Ur Specific [place] 1.014 (1.001-1.035) Urine Protein Negative (Negative) mg/dL Urine Glucose (UA) Negative (Negative) mg/dL Urine Ketones Negative (Negative) mg/dL Ur Blood (Man) Negative (Negative) Urine Nitrate Negative (Negative) Urine Bilirubin Negative (Negative) Urine Urobilinogen 0.2 (<2.0) mg/dL Leukocyte Esterase Rfl Negative (Negative) JAMIL/UL <Fritz Prince MD - Last Filed: 04/17/24 05:53> Discharge Plan Discharge Clinical Impression: Abdominal pain, Acute appendicitis <William Deluna PA-C - Last Filed: 04/17/24 03:54> Patient Disposition: Still a Patient <William Deluna PA-C - Last Filed: 04/17/24 03:54> Condition: Stable <William Deluna PA-C - Last Filed: 04/17/24 03:54> Additional Instructions: If you have any new or worsening symptoms please return to the ER for further evaluation. <William Deluna PA-C - Last Filed: 04/17/24 03:54> Patient Language: Yoruba <William Deluna PA-C - Last Filed: 04/17/24 03:54> Prescriptions: No Action meloxicam 15 mg tablet 15 mg PO DAILY Qty: 30 0RF cholecalciferol (vitamin D3) 1,250 mcg (50,000 unit) tablet 1,250 mcg PO WEEKLY Qty: 12 1RF <William Deluna PA-C - Last Filed: 04/17/24 03:54> Follow-up/Referrals: Sherice Hernandez MD [Primary Care Provider] - <William Deluna PA-C - Last Filed: 04/17/24 03:54> Time of Disposition: 05:52 <William Deluna PA-C - Last Filed: 04/17/24 03:54> 05:52 <Fritz Prince MD - Last Filed: 04/17/24 05:53> Sign Out Sign Out Data: Patient Sign Out occurred on 04/17/24 at 04:52. Patient's care was discussed, and care was transferred from William Deluna PA-C to Fritz Prince MD. <William Deluna PA-C - Last Filed: 04/17/24 03:54>
[2024-04-17 01:55] LABS: Alanine Aminotransferase 20 U/L (6-50); Albumin Level 4.6 g/dL (3.5-5.1); Alkaline Phosphatase 81 U/L (38-126); Anion Gap 6 mmol/L (4-12); Aspartate Amino Transferase 27 U/L (17-59); Bilirubin,Total 0.5 mg/dL (0.2-1.3); Blood Urea Nitrogen 11 mg/dL (9-20); Carbon Dioxide 27 mmol/L (22-30); Chloride 103 mmol/L (98-107); Estimated CRCL calculation 104 ml/min; Estimated Glomerular Filt Rate > 60; Glucose 97 mg/dL (65-110); Lipase 93 U/L (23-300); Potassium 3.2 mmol/L (3.4-5.0); Sodium 136 mmol/L (137-145)
[2024-04-17] MEDS: ACETAMINOPHEN 500 MG TABLET 1000 MG PO (02:15)
[2024-04-17] MEDS: KETOROLAC 15 MG/ML VIAL (*BKC) IV PUSH (02:15)
[2024-04-17] MEDS: POTASSIUM CHLORIDE 20 MEQ ER TABLET 40 MEQ PO (04:02)
[2024-04-17] MEDS: PIPERACILLN/TAZ 3.375GM/NS50ML 3.375 GM/50 ML BAG IVPB (06:10)
--- NOTE | 2024-04-17 07:50 | WPDHPUPDATE1 ---
History and Physical Update Update Date/Time: 04/17/24 07:50 History and Physical has been reviewed, including an updated exam of the patient. There are NO changes in the patient's condition. Risks, benefits, and alternatives have been discussed and questions answered. Patient agrees to proceed with procedure.
--- NOTE | 2024-04-17 07:51 | P.PNAN_ITS ---
Anes - Initial Pre Proc Eval Procedure: Operation Date: 04/17/24 08:00 Proposed Procedures p Laparoscopic Appendectomy - Daniel Agee DO Date/Time: 04/17/24 07:51 Surgeon: Daniel Agee DO Pre Op Diagnosis: Acute Appendicitis Patient Data Age: 28 Gender: M Height: 1.91 m Weight: 100 kg Last Vital Signs Temp 97.1 F L 04/17/24 07:49 Pulse 67 04/17/24 07:49 Resp 18 04/17/24 07:49 BP 125/74 04/17/24 07:49 Pulse Ox 100 04/17/24 07:49 O2 Del Method Room Air 04/17/24 07:49 Allergies Allergy/AdvReac Type Severity Reaction Status Date / Time No Known Allergies Allergy Verified 04/17/24 01:49 Home Medications ?Medication ?Instructions ?Recorded ?Confirmed ?Type No Home Medications 04/17/24 04/17/24 History Laboratory Tests 04/17/24 01:36 WBC 10.6 H K/mm3 (4.5-10.0) RBC 4.35 L M/mm3 (4.6-6.20) Hgb 13.5 L g/dL (14.0-18.0) Hct 38.1 L % (42.0-52.0) MCV 87.6 fl (80-100) MCH 31.0 pg (26-34) MCHC 35.4 g/dl (32-36) RDW 11.2 L % (11.5-14.5) Plt Count 210 k/mm3 (150-375) MPV 10.2 fl (7.4-10.4) Immature Gran % (Auto) 0.2 % (0-0.5) Neut % (Auto) 68.9 % (45.5-73.1) Lymph % (Auto) 22.0 % (18.3-44.2) [place] % (Auto) 7.9 % (2.6-8.5) Eos % (Auto) 0.6 % (0-4.4) Baso % (Auto) 0.4 % (0.2-1.2) Lymph # (Auto) 2.32 K/mm3 (0.9-3.2) [place] # (Auto) 0.8 H K/mm3 (0.1-0.6) Eos # (Auto) 0.1 K/mm3 (0-0.3) Baso # (Auto) 0.0 K/mm3 (0.0-0.1) Abs Immat Gran (auto) 0.02 K/mm3 (0.00-0.031) Absolute Neuts (auto) 7.3 H K/mm3 (1.3-6.7) Absolute Nucleated RBC 0.000 K/mm3 (0.0-0.012) Nucleated RBC % 0.0 % (0.0-0.2) Sodium 136 L mmol/L (137-145) Potassium 3.2 L mmol/L (3.4-5.0) Chloride 103 mmol/L (98-107) Carbon Dioxide 27 mmol/L (22-30) Anion Gap 6 mmol/L (4-12) BUN 11 mg/dL (9-20) Creatinine 1.10 mg/dL (0.7-1.3) Estim Creat Clear Calc 104 ml/min Estimated GFR > 60 (59 - ) Glucose 97 mg/dL (65-110) Calcium 9.0 mg/dL (8.4-10.2) Total Bilirubin 0.5 mg/dL (0.2-1.3) AST 27 U/L (17-59) ALT 20 U/L (6-50) Alkaline Phosphatase 81 U/L (38-126) Total Protein 7.0 g/dL (6.3-8.2) Albumin 4.6 g/dL (3.5-5.1) Lipase 93 U/L (23-300) Urine Color Yellow (Yellow) Urine Appearance Clear (Clear) Urine pH 6.5 (5.0-9.0) Ur Specific [place] 1.014 (1.001-1.035) Urine Protein Negative mg/dL (Negative) Urine Glucose (UA) Negative mg/dL (Negative) Urine Ketones Negative mg/dL (Negative) Ur Blood (Man) Negative (Negative) Urine Nitrate Negative (Negative) Urine Bilirubin Negative (Negative) Urine Urobilinogen 0.2 mg/dL (<2.0) Leukocyte Esterase Rfl Negative JAMIL/UL (Negative) Patient hx anesthesia problems: none Family hx anesthesia problems: none Results Review: All pre-operative results and documents have been reviewed as part of the pre-operative evaluation. [facility] Surgical History Surgical History Hx of inguinal hernia repair Robotic laparoscopic repair right inguinal hernia with mesh 06/23/23 [place] Family History Family History Grandparent Diabetes mellitus Father Diabetes mellitus Social History Social History Smoking status: Never smoker Alcohol intake: current Drinks per week: 2 Substance use: never Substance use type: does not use Do You Feel Safe in your Home?: Yes Lack of Transportation: No Lack of Food: Never True Current Housing: I Have Housing Concerned About Future Housing: No Difficulty Paying Gas/Electric Bills: No Difficulty Paying for Meds: No Currently Unemployed: No Education: High School Diploma/GED Difficulty w/ Childcare or Family Care: No Living arrangements: with family Occupation/Education: occupation 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 Gender identity (if verbalized by the patient): Male Spiritual care concerns: No Agree to blood products: Yes Anes - Eval Final PreProcedure Day of Procedure 04/17/24 07:51 Patient weight: overweight Heart: regular rate and rhythm Lungs: clear to auscultation Airway: Mallampati scale class II Neurological: alert and oriented Last oral intake: >/= 8 hours ASA classification: II Emergent: no Anesthetic plan: proceed Anesthesia type and monitoring: general ETT and standard monitoring Results Review: All pre-operative results and documents have been reviewed as part of the pre- operative evaluation. Informed Consent: The patient's anesthetic plan and its attendant risks and benefits were discussed with the patient/family/POA. Questions were solicited and answers provided to the satisfaction of the patient/family/POA.
--- NOTE | 2024-04-17 07:56 | PM.IMHP ---
H&P: HPI History of Present Illness Date/Time: 04/17/24 07:56 Chief Complaint: RLQ pain Narrative: 28 yo man presented to the ED with RLQ pain that started last night. He said he had some symptoms like this occasionally dating back about 6 months. He had gone to an ED once before but no abnormality was seen and he was sent home. He was also referred to a Urologist because some of his symptoms were thought to be urinary in origin. He has had some chills but denies fevers. He denies Nausea or vomiting. Review of Systems Review of Systems: All systems reviewed & are unremarkable except as noted in HPI and below Eyes: Eyes: Denies change in vision ENT: Denies hearing loss, Denies neck pain and Denies sore throat Cardiovascular: Cardiovascular: Denies chest pain and Denies dyspnea Respiratory: Respiratory: Denies cough, Denies dyspnea and Denies wheezing Gastrointestinal: Gastrointestinal: Reports as per HPI Genitourinary: Genitourinary: Denies hematuria and Denies dysuria Musculoskeletal: Musculoskeletal: Denies arthralgias, Denies joint swelling and Denies neck pain Allergic/Immunologic: Allergic/Immunologic: Denies wheezing [facility] Surgical History Surgical History Hx of inguinal hernia repair Robotic laparoscopic repair right inguinal hernia with mesh 06/23/23 [place] Family History Family History Grandparent Diabetes mellitus Father Diabetes mellitus Social History Social History Smoking status: Never smoker Alcohol intake: current Drinks per week: 2 Substance use: never Substance use type: does not use Do You Feel Safe in your Home?: Yes Lack of Transportation: No Lack of Food: Never True Current Housing: I Have Housing Concerned About Future Housing: No Difficulty Paying Gas/Electric Bills: No Difficulty Paying for Meds: No Currently Unemployed: No Education: High School Diploma/GED Difficulty w/ Childcare or Family Care: No Living arrangements: with family Occupation/Education: occupation 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 Gender identity (if verbalized by the patient): Male Spiritual care concerns: No Agree to blood products: Yes Meds Home Medications and Allergies Home Medications ?Medication ?Instructions ?Recorded ?Confirmed ?Type No Home Medications 04/17/24 04/17/24 History Allergies Allergy/AdvReac Type Severity Reaction Status Date / Time No Known Allergies Allergy Verified 04/17/24 01:49 Vital Signs Vital Signs - 24 hr 04/17/24 01:28 04/17/24 04:04 04/17/24 05:15 Temperature 98 F Pulse Rate 90 81 69 Respiratory Rate 15 14 15 Blood Pressure 131/69 119/73 128/70 Pulse Oximetry 98 100 100 Oxygen Delivery Room Air 04/17/24 06:25 04/17/24 07:49 Temperature 97.1 F L Pulse Rate 59 L 67 Respiratory Rate 15 18 Blood Pressure 125/71 125/74 Pulse Oximetry 99 100 Oxygen Delivery Room Air Exam Const: General: alert; No acute distress Orientation/consciousness: patient oriented x3 Limitations: no limitations HENMT: Head: normocephalic and atraumatic Ears: hearing grossly normal bilaterally Face/Nose/Sinus: Normal external nose present and Normal nares present Mouth: Yes Normal oral and palatal mucosa present and Yes moist mucous membranes Eyes: General: appearance normal, both eyes and all related structures Conjunctivae: conjunctivae normal Sclera: sclerae normal Pupils: Equal, round and reactive pupils present EOM: EOMs intact bilaterally Neck: Neck: normal visual inspection, full ROM, no lymphadenopathy, supple and no JVD Lymphatic: no lymphadenopathy noted Chest: Chest palpation & inspection: normal inspection of the chest Resp: Effort & Inspection: normal respiratory effort and able to speak in complete sentences Auscultation: clear to auscultation bilaterally Percussion: percussion normal Cardio: Jugular venous distension: no JVD Rate: regular rate Rhythm: regular rhythm Heart sounds: S1 normal heart sound present and S2 normal heart sound present Peripheral pulses: Peripheral pulses 2+ throughout GI: Inspection: normal to inspection GI Palp: Yes Soft to palpation, Yes Tenderness to palpation present (GI) (RLQ), No Guarding due to palpation present (GI) and No Rebound tenderness present Auscultation: normal bowel sounds : General: Yes no CVA tenderness Back/Spine/Pelvis: Back: no CVA tenderness Skin: General skin exam: normal color and dry skin Neuro: General: patient oriented x3, gait normal, moves all extremities, no focal motor deficits and CN's II-XI intact bilaterally Cranial nerves: Yes Equal, round and reactive pupils present Speech: normal speech Extrem: General: normal to inspection and capillary refill normal H&P: Results Labs Labs: Short CBC 04/17/24 Range/Units 01:36 WBC 10.6 H (4.5-10.0) K/mm3 Hgb 13.5 L (14.0-18.0) g/dL Hct 38.1 L (42.0-52.0) % Plt Count 210 (150-375) k/mm3 BMP 04/17/24 01:36 Sodium 136 L Potassium 3.2 L Chloride 103 Carbon Dioxide 27 BUN 11 Creatinine 1.10 Glucose 97 Calcium 9.0 Liver Function 04/17/24 Range/Units 01:36 Total Bilirubin 0.5 (0.2-1.3) mg/dL AST 27 (17-59) U/L ALT 20 (6-50) U/L Alkaline Phosphatase 81 (38-126) U/L Albumin 4.6 (3.5-5.1) g/dL Urine 04/17/24 Range/Units 01:36 Urine Color Yellow (Yellow) Urine Appearance Clear (Clear) Urine pH 6.5 (5.0-9.0) Ur Specific [place] 1.014 (1.001-1.035) Urine Protein Negative (Negative) mg/dL Urine Glucose (UA) Negative (Negative) mg/dL Imaging CT scan - abdomen: Radiologist's impression: ITS Impressions Abdomen/Pelvis CT 04/17/24 06:55 Impression: Suspected early acute appendicitis. Correlate clinically. Assessment and Plan Assessment and plan (1) Acute appendicitis: Qualifiers: Acute appendicitis type: with localized peritonitis Appendicitis gangrene presence: without gangrene Appendicitis perforation presence: without perforation Appendicitis abscess presence: without abscess Qualified Code(s): K35.30 - Acute appendicitis with localized peritonitis, without perforation or gangrene Code(s): K35.80 - Unspecified acute appendicitis Status: Acute Assessment and Plan: I reviewed the CT and discussed the findings with the patient. He has evidence of acute appendicitis. I discussed medical and surgical treatment options and patient feels comfortable proceeding with surgery. I have recommended laparoscopic appendectomy, possible open. I discussed the procedure, risks, benefits, and alternatives. Questions answered. Patient received Zosyn in the ED.
[2024-04-17] MEDS: LACTATED RINGERS 1,000 ML 30 ML IV CONT ×2 (08:00→09:51)
[2024-04-17] MEDS: BUPIVACAINE/EPINEPHRINE 0.5% 50 ML VIAL 30 ML INFILTRATE (08:34)
--- NOTE | 2024-04-17 08:53 | P.OP_ITS ---
Procedure Note - Detailed Date of Procedure 04/17/24 Pre-op Diagnosis Acute Appendicitis Post-op Diagnosis Same Procedure Performed Laparoscopic appendectomy Surgeon Daniel Agee, DO Anesthesia General and Local (0.5% bupivacaine with epinephrine) Indications This is a 28-year-old man who presented to the emergency department with right lower quadrant pain that started last night. Pain was becoming worse throughout the night and he therefore chose to come to be evaluated. He had had minor pains somewhat similar to this over the past 6 months but nothing this severe or persistent. In the emergency department he was noted to have a slightly elevated white blood count and CT showed evidence of early acute appendicitis. Discussions were made with the patient about treatment options and decision was made to proceed with laparoscopic appendectomy, possible open. Findings Laparoscopic appendectomy was performed. The patient had evidence of early acute appendicitis. His appendix was dilated and indurated. There was no evidence of perforation or abscess. The base of the appendix appeared healthy and viable. The appendix was removed and sent to the lab for pathology. Description of Procedure Procedure as well as risks, benefits, and alternatives were explained to the patient. The patient agreed to proceed. Written consent was obtained and placed in chart prior to procedure. The patient was brought back to surgical suite. He was placed supine on operating table. Time-out was done to confirm the patient and procedure. The patient was then intubated by the Anesthesia Department. His abdomen was prepped and draped in sterile fashion using chlorhexidine prep. A 12 mm incision was made at the inferior portion of the umbilicus. Blunt dissection was carried out down to the linea alba. The linea alba was then incised using a 15 blade scalpel. Then bluntly entered into the peritoneal cavity. A 12 mm trocar was then inserted, and carbon dioxide insufflation was used to create a pneumoperitoneum. The camera was inserted and the abdomen was inspected. No immediate abnormalities were identified. The patient was then placed in slight Trendelenburg position and rotated to the left. A 5 mm incision was made in the suprapubic region in midline and a 5 mm trocar was inserted under direct visualization. A 5 mm incision was made in the left lower quadrant and a 5 mm trocar was inserted under direct visualization. The right lower quadrant was carefully inspected. The cecum was identified and then this was traced back to the appendix. The appendix was identified and gr asped at the mesoappendix and lifted anteriorly. Careful blunt dissection was carried out at the base of the appendix through the mesoappendix using a [place] grasper. An Endo-SAUMYA 45 mm blue load stapler was then advanced across the base of the appendix and clamped and fired. A white reload was then clamped across the mesoappendix and fired. This freed up our appendix completely. It was then placed in an EndoCatch bag and removed through the umbilical port. The staple lines were then inspected. Hemostasis appeared adequate and the staple lines appeared secure. The area was then irrigated with sterile saline. The pelvis was then carefully inspected and irrigated with sterile saline as well and the remainder of the abdomen was carefully inspected. The patient was then flattened out in bed. One final inspection was made around the abdominal cavity and no other abnormalities were seen. The ports were then removed under direct visualization. The camera was removed and the pneumoperitoneum was released. The fascia of the umbilical incision was reapproximated using an 0 Vicryl [id number] suture. 0.5% bupivacaine with epinephrine was infiltrated locally around each of the incisions. The skin of the incisions was then approximated using 4-0 Monocryl subcuticular suture and Exofin glue was applied on top. The patient was then awakened from anesthesia, extubated, and transferred to Recovery. Estimated Blood Loss 10 Pathology Yes (Appendix) Complications No immediate complications Condition Stable Disposition Same day [facility] Billing Surgery - Charge Forward: Surgery Billing
[2024-04-17] MEDS: fentaNYL CITRATE INJ (*CRX) 100 MCG/2 ML VIAL 25 MCG IV PUSH ×8 (09:26→09:46)
[2024-04-17] MEDS: oxyCODONE HCL (*CRX) 5 MG TAB IR PO (10:26)
== END 2024-04-17 11:10 | disposition home or self-care (01) ==
LOC: ANHED 05:31 → ANH3MED 06:59 → ANHSURGERY 04-18 07:44 → ANH3MED 04-18 07:46
PROVIDERS: Emergency Provider Emergency Medicine; PCP Family Medicine; Visit Provider Surgery
PROC: 0DTJ4ZZ Resection of Appendix, Percutaneous Endoscopic Approach (ICD-10-PCS; CPT 44970; principal; 2024-04-17 08:00)
DX: K35.80 Unspecified acute appendicitis (principal)
CPT/HCPCS: 44970; 36415; 74177; 80053; 81003; 83690; 85025; 88304; 96365; 96375; 99285; A9270; G0378; J1100; J1885; J2003; J2250; J2405; J2543; J2704; J3010; J7030; J7120; Q9967

== ENCOUNTER 2025-03-12 15:02 | Emergency (ER) | payer BC, SELFPAY ==
--- NOTE | ~2025-03-12 | XR_ITS ---
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 Technique: 2 views obtained. Findings: The lungs are clear, no effusion. No pneumothorax. Heart is normal size. Mediastinal and hilar contours are within normal limits. Bony thorax no acute abnormality. Impression: No acute cardiopulmonary abnormality. Reviewed, dictated and finalized at location P. ICAL INSTRUMENT MAKER Impression: No acute cardiopulmonary abnormality.
--- NOTE | 2025-03-12 15:05 | ECG_ITS ---
Test Date: 2025-03-12 15:09:08 Measurements Intervals [place] Rate: 90 P: 72 VT: 126 QRS: 77 QRSD: 93 T: 19 QT: 322 QTc: 395 Interpretive Statements SINUS RHYTHM NONSPECIFIC T-WAVE ABNORMALITY No previous ECG available for comparison Electronically Signed On 03-12-2025 22:28:58 VP RESPIRATORY by Michael Ochoa D.O
[2025-03-12 15:11] VITALS: BP 142/87; PULSE 103; RESP 16; TEMP 36.5; O2SAT 100
--- OUTSIDE RECORDS SUMMARY | 2025-03-12 15:54 | XMS_ITS | Clinical Summary ---
Author Organization [facility] [place] [address] Address [address] [place] [id number] Care Team Providers Care Business Process Architect Name Role Phone Aquiles Hernandez MD Primary Care Provider Allergies No known active allergies Medications al & mag hydroxide with simethicone-dip henhydramine-li docaine (MAGIC MOUTHWASH) suspension 1-1-1 Swish and swallow 10 mL every 4 (four) hours as needed (sore throat) 100 mL Active Additional Information Patient not taking.Reported on 09/24/2024 Active Problems No known active problems Social History Tobacco Use Types Packs/Day Years Used Date Smoking Tobacco: Never Assessed Sex and Gender Information Value Date Recorded Sex Assigned at Not on file Legal Sex Male 12:26 PM CDT Gender Identity Not on file Sexual Orientation Not on file Last Filed Vital Signs Vital Sign Reading Time Taken Comments Blood Pressure 122/64 09/24/2024 8:35 AM CDT Pulse 60 09/24/2024 8:35 AM CDT Temperature 36.9 C (98.5 F) 09/24/2024 8:35 AM CDT Respiratory Rate 16 09/24/2024 8:35 AM CDT Oxygen Saturation 99% 09/24/2024 8:35 AM CDT Inhaled Oxygen Concentration - - Weight 99.3 kg (219 lb) 09/24/2024 8:35 AM CDT Height 190.5 cm (6' 3) 09/24/2024 8:35 AM CDT Body Mass Index 27.37 09/24/2024 8:35 AM CDT Plan of Treatment Health Maintenance Due Date Last Done Comments Depression Screening 1993 Hepatitis C Screening 1993 DTaP/Tdap/Td Vaccine (1 - Tdap) 2004 Varicella Vaccines (1 of 2 - 13+ 2-dose series) 2006 Hepatitis B Screening 10/24/2011 Regular Well Visit/Exam 18-64 10/24/2011 HPV Vaccines (1 - 3-dose SCD M series) 2020 Influenza Vaccine (#1) 2024 Pneumococcal vaccine <65 Aged Out No longer eligible based on patient's age to complete this topic Insurance [employer] [facility] Care Teams Business Process Architect Relationship Specialty Start Date End Date Aquiles Hernandez MD [id number] [place] [address] PCP - General Family Practice 05/28/24
--- NOTE | 2025-03-12 16:26 | ED_ITS ---
HPI - Arrhythmia/Palpitations General Chief Complaint: Arrhythmia/Palpitations <Roseanne Jackson PA-C - Last Filed: 03/12/25 19:12> Stated Complaint: arrhythmias <DONNA Nash Last Filed: 03/12/25 19:12> Time Seen by Provider: 03/12/25 16:26 <DONNA Nash Last Filed: 03/12/25 19:12> Focused HPI: This is a 29 year old male that presents to the ER for palpitations. Reports he was sitting in his truck. Reports he checked his watch and it told him his heart was beating at 150s. Reports some chest pain. Denies shortness of breath. GENERAL: Well-appearing, well-nourished, and in no acute distress. HEAD: Normocephalic, atraumatic. CHEST: Clear to auscultation. ?No respiratory distress. HEART: Regular rate and rhythm.? NEURO: ?Alert and oriented x3. Patient screened in triage and initial orders placed.? ?Additional care and disposition to be based upon?diagnostic testing and treatment. <Roseanne Jackson PA-C - Last Filed: 03/12/25 19:12> Focused HPI: This is a 29 year old male that presents to the ER for palpitations. Reports he was sitting in his truck. Reports he checked his watch and it told him his heart was beating at 150s. Reports some chest pain. Denies shortness of breath. GENERAL: Well-appearing, well-nourished, and in no acute distress. HEAD: Normocephalic, atraumatic. CHEST: Clear to auscultation. ?No respiratory distress. HEART: Regular rate and rhythm.? NEURO: ?Alert and oriented x3. Patient screened in triage and initial orders placed.? ?Additional care and disposition to be based upon?diagnostic testing and treatment. <DONNA Whitmore Last Filed: 03/13/25 01:44> Source: patient <DONNA Whitmore Last Filed: 03/13/25 01:44> Mode of arrival: ambulatory <DONNA Whitmore Last Filed: 03/13/25 01:44> Limitations: no limitations <Ana Moctezuma PA-C - Last Filed: 03/13/25 01:44> History of Present Illness HPI narrative: Agree with above HPI. States this occurred around 1:00 p.m.. States his heart rate was in the 150s for several seconds before improving, however remained high 90s-low 100s for a while afterwards. Reported having some lightheadedness and chest pain which have both since resolved. Denied feeling short of breath. Denies recent illness. States he feels fine currently. Does note that he was feeling stressed and anxious today. <Ana Moctezuma PA-C - Last Filed: 03/13/25 01:44> Related Data Allergies/Adverse Reactions: Allergies Allergy/AdvReac Type Severity Reaction Status Date / Time No Known Allergies Allergy Verified 03/12/25 15:13 <Roseanne Jackson PA-C - Last Filed: 03/12/25 19:12> Review of Systems 2 Review of Systems: All systems reviewed & are unremarkable except as noted in HPI. <Ana Moctezuma PA-C - Last Filed: 03/13/25 01:44> All systems reviewed & are unremarkable except as noted in HPI and below < Ana Moctezuma PA-C - Last Filed: 03/13/25 01:44> [facility] Surgical History Surgical History: Surgical History History of appendectomy 04/17/2024 Hx of inguinal hernia repair Robotic laparoscopic repair right inguinal hernia with mesh 06/23/23 [facility] <Roseanne Jackson PA-C - Last Filed: 03/12/25 19:12> Family History Family History: Family History Grandparent Diabetes mellitus Father Diabetes mellitus <Roseanne Jackson PA-C - Last Filed: 03/12/25 19:12> Social History Social History: Social History Alcohol intake: current Drinks per week: 2 Substance use: never Substance use type: does not use Do You Feel Safe in your Home?: Yes Lack of Transportation: No Lack of Food: Never True Current Housing: I Have Housing Concerned About Future Housing: No Difficulty Paying Gas/Electric Bills: No Difficulty Paying for Meds: No Currently Unemployed: No Education: High School Diploma/GED Difficulty w/ Childcare or Family Care: No Living arrangements: with family Occupation/Education: occupation 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 HEAD: Normocephalic, atraumatic. RESPIRATORY: Airway patent, respirations nonlabored. Clear to auscultation bilaterally, no rales, rhonchi, wheezing. CARDIOVASCULAR: Regular rate and rhythm without murmurs, rubs, or gallops. Peripheral pulses intact. MUSCULOSKELETAL: Moves all extremities. No gross deformities. No peripheral edema. No calf tenderness. SKIN: Warm, dry, normal color. NEURO: A&O X3. Speech clear. Cranial nerves II-XII grossly intact. Steady gait. No ataxic movements. PSYCHIATRIC: Appropriate mood and affect. Normal interaction. <Ana Moctezuma PA-C - Last Filed: 03/13/25 01:44> Course Vital Signs Vital signs: Vital Signs Temperature 97.7 F 03/12/25 15:11 Pulse Rate 103 H 03/12/25 15:11 Respiratory Rate 16 03/12/25 15:11 Blood Pressure 142/87 H 03/12/25 15:11 Pulse Oximetry 100 03/12/25 15:11 Oxygen Delivery Room Air 03/12/25 15:11 Temperature 97.7 F 03/12/25 15:11 Pulse Rate 80 03/12/25 21:10 Respiratory Rate 16 03/12/25 21:10 Blood Pressure 123/72 03/12/25 21:10 Pulse Oximetry 97 03/12/25 21:10 Oxygen Delivery Room Air 03/12/25 15:11 <Roseanne Jackson PA-C - Last Filed: 03/12/25 19:12> Vital Signs Temperature 97.7 F 03/12/25 15:11 Pulse Rate 103 H 03/12/25 15:11 Respiratory Rate 16 03/12/25 15:11 Blood Pressure 142/87 H 03/12/25 15:11 Pulse Oximetry 100 03/12/25 15:11 Oxygen Delivery Room Air 03/12/25 15:11 Temperature 97.7 F 03/12/25 15:11 Pulse Rate 80 03/12/25 21:10 Respiratory Rate 16 03/12/25 21:10 Blood Pressure 123/72 03/12/25 21:10 Pulse Oximetry 97 03/12/25 21:10 Oxygen Delivery Room Air 03/12/25 15:11 <Ana Moctezuma PA-C - Last Filed: 03/13/25 01:44> MDM - Arrhythmia/Palpitations MDM Narrative Medical decision making narrative: EKG with sinus rhythm, no concerning ST changes. Troponin negative Mag within normal range D-dimer within normal range Chest x-ray is clear Basic laboratory studies are unremarkable. TSH was slightly low at 0.321. Free T4 within normal range. Discussed this with patient. Advised to have close follow-up with PCP for this. 3hr trop undetectable. Overall workup is reassuring. Discussed lab and imaging findings with patient. Patient's HR has been very much stable here, sinus rhythm, rate controlled. No significant ectopy. No abnormal rhythms identified. Suspicious for increased stress / anxiety causing symptoms today, however discussed possibility of dysrhythmia, brief episode of SVT. Will place order for patient to receive outpatient Holter monitor and refer to Cardiology. Also advised close follow-up with PCP for continued evaluation. Patient given strict return precautions should symptoms worsen or recur. He is in agreement with plan, feels comfortable going home. Discharged in stable condition. Heart rate 80 at time of D/C. <Ana Moctezuma PA-C - Last Filed: 03/13/25 01:44> Medical Records Attestation: I reviewed the patient's medical records. <DONNA Whitmore Last Filed: 03/13/25 01:44> Lab Data Attestation: I reviewed the patient's lab results. <Ana Moctezuma PA-C - Last Filed: 03/13/25 01:44> Result diagrams: 03/12/25 17:39 03/12/25 17:39 <Roseanne Jackson PA-C - Last Filed: 03/12/25 19:12> Labs: Lab Results 03/12/25 03/12/25 Range/Units 17:39 20:22 WBC 5.1 (4.5-10.0) K/mm3 RBC 4.58 L (4.6-6.20) M/mm3 Hgb 14.2 (14.0-18.0) g/dL Hct 41.1 L (42.0-52.0) % MCV 89.7 (80-100) fl MCH 31.0 (26-34) pg MCHC 34.5 (32-36) g/dl RDW 11.1 L (11.5-14.5) % Plt Count 211 (150-375) k/mm3 MPV 10.3 (7.4-10.4) fl Immature Gran % (Auto) 0.0 (0-0.5) % Neut % (Auto) 60.2 (45.5-73.1) % Lymph % (Auto) 30.2 (18.3-44.2) % Jerauld % (Auto) 8.2 (2.6-8.5) % Eos % (Auto) 0.6 (0-4.4) % Baso % (Auto) 0.8 (0.2-1.2) % Lymph # (Auto) 1.55 (0.9-3.2) K/mm3 Jerauld # (Auto) 0.4 (0.1-0.6) K/mm3 Eos # (Auto) 0.0 (0-0.3) K/mm3 Baso # (Auto) 0.0 (0.0-0.1) K/mm3 Abs Immat Gran (auto) 0.00 (0.00-0.031) K/mm3 Absolute Neuts (auto) 3.1 (1.3-6.7) K/mm3 Absolute Nucleated RBC 0.000 (0.0-0.012) K/mm3 Nucleated RBC % 0.0 (0.0-0.2) % PT 13.8 (11.1-14.7) Seconds INR 1.1 APTT 30.2 (22.3-36.8) Seconds D-Dimer < 0.27 (<0.48) ug/mL Sodium 139 (137-145) mmol/L Potassium 4.1 (3.4-5.0) mmol/L Chloride 103 (98-107) mmol/L Carbon Dioxide 27 (22-30) mmol/L Anion Gap 9 (4-12) mmol/L BUN 14 (9-20) mg/dL Creatinine 1.27 (0.7-1.3) mg/dL Estim Creat Clear Calc 90 ml/min Estimated GFR > 60 (59 - ) Glucose 93 (65-110) mg/dL Calcium 9.1 (8.4-10.2) mg/dL Magnesium 2.1 (1.6-2.3) mg/dL Total Bilirubin 0.6 (0.2-1.3) mg/dL AST 27 (17-59) U/L ALT 25 (6-50) U/L Alkaline Phosphatase 66 (38-126) U/L Troponin I < 0.012 < 0.012 (0.000-0.034) ng/mL Total Protein 7.7 (6.3-8.2) g/dL Albumin 4.7 (3.5-5.1) g/dL Lipase 107 (23-300) U/L TSH (Reflex) 0.321 L (0.465-4.68) uIU/mL Free T4 1.16 (0.78-2.19) ng/dL Total T3 1.11 (0.82-1.58) NG/ML <Roseanne Jackson PA-C - Last Filed: 03/12/25 19:12> Lab Results 03/12/25 03/12/25 Range/Units 17:39 20:22 WBC 5.1 (4.5-10.0) K/mm3 RBC 4.58 L (4.6-6.20) M/mm3 Hgb 14.2 (14.0-18.0) g/dL Hct 41.1 L (42.0-52.0) % MCV 89.7 (80-100) fl MCH 31.0 (26-34) pg MCHC 34.5 (32-36) g/dl RDW 11.1 L (11.5-14.5) % Plt Count 211 (150-375) k/mm3 MPV 10.3 (7.4-10.4) fl Immature Gran % (Auto) 0.0 (0-0.5) % Neut % (Auto) 60.2 (45.5-73.1) % Lymph % (Auto) 30.2 (18.3-44.2) % Jerauld % (Auto) 8.2 (2.6-8.5) % Eos % (Auto) 0.6 (0-4.4) % Baso % (Auto) 0.8 (0.2-1.2) % Lymph # (Auto) 1.55 (0.9-3.2) K/mm3 Jerauld # (Auto) 0.4 (0.1-0.6) K/mm3 Eos # (Auto) 0.0 (0-0.3) K/mm3 Baso # (Auto) 0.0 (0.0-0.1) K/mm3 Abs Immat Gran (auto) 0.00 (0.00-0.031) K/mm3 Absolute Neuts (auto) 3.1 (1.3-6.7) K/mm3 Absolute Nucleated RBC 0.000 (0.0-0.012) K/mm3 Nucleated RBC % 0.0 (0.0-0.2) % PT 13.8 (11.1-14.7) Seconds INR 1.1 APTT 30.2 (22.3-36.8) Seconds D-Dimer < 0.27 (<0.48) ug/mL Sodium 139 (137-145) mmol/L Potassium 4.1 (3.4-5.0) mmol/L Chloride 103 (98-107) mmol/L Carbon Dioxide 27 (22-30) mmol/L Anion Gap 9 (4-12) mmol/L BUN 14 (9-20) mg/dL Creatinine 1.27 (0.7-1.3) mg/dL Estim Creat Clear Calc 90 ml/min Estimated GFR > 60 (59 - ) Glucose 93 (65-110) mg/dL Calcium 9.1 (8.4-10.2) mg/dL Magnesium 2.1 (1.6-2.3) mg/dL Total Bilirubin 0.6 (0.2-1.3) mg/dL AST 27 (17-59) U/L ALT 25 (6-50) U/L Alkaline Phosphatase 66 (38-126) U/L Troponin I < 0.012 < 0.012 (0.000-0.034) ng/mL Total Protein 7.7 (6.3-8.2) g/dL Albumin 4.7 (3.5-5.1) g/dL Lipase 107 (23-300) U/L TSH (Reflex) 0.321 L (0.465-4.68) uIU/mL Free T4 1.16 (0.78-2.19) ng/dL Total T3 1.11 (0.82-1.58) NG/ML <Ana Moctezuma PA-C - Last Filed: 03/13/25 01:44> Imaging Data Attestation: I personally reviewed and interpreted this imaging study as follows: < Ana Moctezuma PA-C - Last Filed: 03/13/25 01:44> Radiologist's impression: ITS Impressions Chest X-Ray 03/12/25 16:39 Impression: No acute cardiopulmonary abnormality. <Ana Moctezuma PA-C - Last Filed: 03/13/25 01:44> ECG Data EKG #1: Attestation: I personally reviewed and interpreted this ECG as follows: <Ana Moctezuma PA-C - Last Filed: 03/13/25 01:44> ECG completion date: 03/12/25 <Ana Moctezuma PA-C - Last Filed: 03/13/25 01:44> ECG completion time: 15:09 <DONNA Whitmore Last Filed: 03/13/25 01:44> EKG Interpretation: normal rate (90), sinus rhythm and non-specific ST changes <DONNA Whitmore Last Filed: 03/13/25 01:44> Critical Care Time Critical Care Time Critical Care Time: No <DONNA Nash Last Filed: 03/12/25 19:12> Discharge Plan Discharge Clinical Impression: Heart palpitations, Tachycardia, Low TSH level <Roseanne Jackson PA-C - Last Filed: 03/12/25 19:12> Patient Disposition: Home <DONNA Nash Last Filed: 03/12/25 19:12> Condition: Stable <DONNA Nash Last Filed: 03/12/25 19:12> Instructions: Antibiotic Form, Heart Palpitations (ED), Tachycardia (ED) <DONNA Nash Last Filed: 03/12/25 19:12> Additional Instructions: Your workup here was reassuring. Your thyroid hormone was slightly low. You will need to follow up with primary care doctor for further evaluation of this. Continue to monitor symptoms. Recommend follow-up with Cardiology for possible Holter monitor placement. Take order sheet with you to Cardiology office. Return to the ED if you experience recurrent palpitations, persistent palpitations, heart rate persistently > 120, recurrent chest pain or shortness of breath, unable to keep down food or drink, pain or swelling in your legs, or any other symptoms of concern. <DONNA Nash Last Filed: 03/12/25 19:12> Patient Language: Polish <DONNA Nash Last Filed: 03/12/25 19:12> Prescriptions: No Action methylprednisolone [Medrol (Jatin)] 4 mg tablets,dose pack See Rx Instructions PO PER PKG DIR Qty: 21 0RF Rx Instructions: PO PER PKG DIR for 6 days <DONNA Nash Last Filed: 03/12/25 19:12> Other Ambulatory Orders: CA holter monitor 3-7 day (Routine) Timeframe: 1 Week Location: Determined by Patient Ordered By: Ana Moctezuma <Roseanne Jackson PA-C - Last Filed: 03/12/25 19:12> Follow-up/Referrals: Ronak Lizarraga MD [Physician, Cardiology] Referral Note: CARDIOLOGY Sherice Hernandez MD [Primary Care Provider, Family Practice] <DONNA Nash Last Filed: 03/12/25 19:12> Time of Disposition: 20:02 <DONNA Nash Last Filed: 03/12/25 19:12> 20:02 <Ana Moctezuma PA-C - Last Filed: 03/13/25 01:44>
[2025-03-12 17:47] LABS: Hematocrit 41.1 % (42.0-52.0); Hemoglobin 14.2 g/dL (14.0-18.0); Immature Granulocyte Percent A 0.0 % (0-0.5); Lymphocytes Absolute Auto 1.55 K/mm3 (0.9-3.2); Mean Corpuscular HGB Conc 34.5 g/dl (32-36); Mean Corpuscular Hemoglobin 31.0 pg (26-34); Mean Corpuscular Volume 89.7 fl (80-100); Nucleated Red Blood Cells Absolute Auto 0.000 K/mm3 (0.0-0.012); Nucleated Red Blood Cells Perc 0.0 % (0.0-0.2); Platelet Count Result 211 k/mm3 (150-375); Red Blood Count 4.58 M/mm3 (4.6-6.20); White Blood Count 5.1 K/mm3 (4.5-10.0)
[2025-03-12 17:58] LABS: INR 1.1; Partial Thromboplastin Time 30.2 Seconds (22.3-36.8); Prothrombin Time 13.8 Seconds (11.1-14.7)
[2025-03-12 18:01] LABS: Alanine Aminotransferase 25 U/L (6-50); Albumin Level 4.7 g/dL (3.5-5.1); Alkaline Phosphatase 66 U/L (38-126); Anion Gap 9 mmol/L (4-12); Aspartate Amino Transferase 27 U/L (17-59); Bilirubin,Total 0.6 mg/dL (0.2-1.3); Blood Urea Nitrogen 14 mg/dL (9-20); Calcium 9.1 mg/dL (8.4-10.2); Carbon Dioxide 27 mmol/L (22-30); Chloride 103 mmol/L (98-107); Estimated CRCL calculation 90 ml/min; Estimated Glomerular Filt Rate > 60; Glucose 93 mg/dL (65-110); Lipase 107 U/L (23-300); Magnesium 2.1 mg/dL (1.6-2.3); Potassium 4.1 mmol/L (3.4-5.0); Sodium 139 mmol/L (137-145); Total Protein 7.7 g/dL (6.3-8.2)
[2025-03-12 18:12] LABS: Troponin I < 0.012 ng/mL (0.000-0.034)
[2025-03-12 18:47] LABS: Thyroid Stimulating Hormone Reflex 0.321 uIU/mL (0.465-4.68)
[2025-03-12 19:28] LABS: Free T4 Free Thyroxine Reflex 1.16 ng/dL (0.78-2.19)
--- NOTE | 2025-03-12 20:08 | ECG_ITS ---
Test Date: 2025-03-12 20:25:16 Measurements Intervals [place] Rate: 60 P: 59 ME: 135 QRS: 69 QRSD: 102 T: 47 QT: 376 QTc: 378 Interpretive Statements SINUS RHYTHM Electronically Signed On 03-12-2025 22:35:10 SUB PLANT MANAGER by Michael Ochoa D.O
[2025-03-12 20:19] LABS: Total Triiodothyronine (T3) 1.11 NG/ML (0.82-1.58)
[2025-03-12 20:31] VITALS: BP 134/92; PULSE 66; RESP 14; O2SAT 97
[2025-03-12 20:50] LABS: Troponin I < 0.012 ng/mL (0.000-0.034)
[2025-03-12 21:10] VITALS: BP 123/72; PULSE 80; RESP 16; O2SAT 97
== END 2025-03-12 21:19 | disposition home or self-care (01) ==
PROVIDERS: Physician Assistant; Emergency Provider Physician Assistant; PCP Family Medicine
DX: R00.2 Palpitations (principal); R00.0 Tachycardia, unspecified; E03.9 Hypothyroidism, unspecified
CPT/HCPCS: 36415; 71046; 80053; 83690; 83735; 84439; 84443; 84480; 84484; 85025; 85380; 85610; 85730; 93005; 99284